=== PATIENT | male | born 1995 | race Asian ===

== ENCOUNTER 2019-04-23 18:15 | Emergency (ER) | payer SELFPAY ==
[~2019-04-23] VITALS: Ht 177.8 cm; Wt 59.1 kg
[2019-04-23 18:45] VITALS: BP 147/92; TEMP 98.6
[2019-04-23] MEDS ORDERED: FIORICET 325 MG1 TA1 PO (20:14)
[2019-04-23 20:40] VITALS: PULSE 87
== END 2019-04-23 20:40 | disposition home or self-care (01) ==
LOC: COL.ER 18:15
DX: R51 Headache (principal); Z88.0 Allergy status to penicillin; Z98.890 Other specified postprocedural states